=== PATIENT | male | born 1960 | race Caucasian/White ===

== ENCOUNTER 2016-06-21 08:15 | Day surgery (SDC) | payer MEDICARE ==
[2016-06-19 15:16] LABS: HEMOGLOBIN 15.5 g/dL (13.6-17.8)
[2016-06-19 16:34] LABS: BUN (BLOOD UREA NITROGEN) 16 MG/DL (6-23); CALCIUM, SERUM 8.8 MG/DL (8.5-10.4); CHLORIDE, SERUM 105 MMOL/L (96-112); CO2 (CARBON DIOXIDE) 28 MMOL/L (24-34); CREATININE 1.17 MG/DL (0.70-1.30); GFR AFRICAN AMERICAN 81 ML/MIN (>=60); GFR NON AFRICAN AMERICAN 70 ML/MIN (>=60); GLUCOSE, SERUM 97 MG/DL (60-99); SODIUM, SERUM 141 MMOL/L (135-148)
--- NOTE | ~2016-06-21 | OP ---
Record Of Operation [facility] [address] [place]. [address] NAME: DONIS LEWIS : 62 [place] [facility] [place] [id number] AGE: 56 ADM/REG DATE : 06/21/16 MR#: [id number] REPORT SERV DATE: 06/21/16 DICTATED BY: EVELYN SCHAEFFER DATE: 06/21/16 REPORT STATUS : Draft TRANSCRIBED BY: MODL DATE: 06/21/16 DATE OF PROCEDURE: 06/21/2016 PREOPERATIVE DIAGNOSES: 1. Left upper back subcutaneous mass x2 with recent cellulitis. 2. Diabetes mellitus. 3. Nicotine dependence. 4. Coronary artery disease, status post coronary artery bypass and stents. 5. Hypertension. 6. Obstructive sleep apnea. POSTOPERATIVE DIAGNOSES: 1. Left upper back subcutaneous mass x2 with recent cellulitis. 2. Diabetes mellitus. 3. Nicotine dependence. 4. Coronary artery disease, status post coronary artery bypass and stents. 5. Hypertension. 6. Obstructive sleep apnea. PROCEDURE: Excision of deep subcutaneous left upper back mass x2 with layered closure (3.5 x 3.5 cm and 2.2 cm). ANESTHESIA: General. SELECTOR PACKER: Tomer. COMPLICATIONS: None. DRAINS: None. ESTIMATED BLOOD LOSS: 20 mL. FINDINGS: The patient was noted to have a left upper back deep subcutaneous mass superiorly that appeared to be an infected sebaceous cyst with a possible second phlebotomist medical lab assistant infected sebaceous cyst versus necrotic lymph node, both were taken out and closed in layers. OPERATIVE TECHNIQUE: The patient was brought to the operating room and placed on the table in supine position. He had preoperative IV antibiotics. He had sequential hose in place. He voided prior to the procedure. He underwent general endotracheal anesthesia and was prepped and draped in a sterile fashion, and time-out was completed. Local anesthesia was instilled around the masses. The left upper back cyst was excised in elliptical fashion with a 15 blade knife and the incision was carried through the subcutaneous tissues down the level of the fascia and it was completely excised and sent to Pathology. The wound was then thoroughly irrigated, and hemostasis was obtained using electrocautery. The lower lesion toward the left posterior axilla was anesthetized with local anesthesia and a transverse oblique incision was made over the mass that was carried down to the level of the mass, Record Of Operation [facility] [address] [place]. [address] NAME: DONIS LEWIS : 62 [place]US : [place] [facility] [place] [id number] AGE: 56 ADM/REG DATE : 06/21/16 MR#: [id number] REPORT SERV DATE: 06/21/16 DICTATED BY: VEELYN SCHAEFFER DATE: 06/21/16 REPORT STATUS : Draft TRANSCRIBED BY: MODL DATE: 06/21/16 which was necrotic. It was completely excised down the level and including muscle fascia and sent to Pathology. The wound was irrigated and hemostasis was obtained. Both incisions were closed in layered fashion with a 3-0 Vicryl deep subcutaneous tissue reapproximation followed by interrupted Ethibond sutures at the skin. Dry dressings were applied. He was extubated and taken to the recovery room in stable condition. All sponge and needle counts were reported correct. /GIBRAN Evelyn Schaeffer M.D. / [id number] CC: Umair Giles
[~2016-06-21 08:15] MED LIST: ASA5GR PO; ASAB PO; CHLORTHALID25 MG OR; CHLORTHALID25 MG PO; COREG12 PO; COREG25 PO; DURICEFSUS PO; ENDOCET1 TA1 PO; FISH OIL1200 MG PO; FLEX PO; GLUCOPHAGE1000 MG PO; GLUCPH PO; GOODY'S EX PO; GOODYS PM1 POW OR; HYGROTON 25 MG25 MG PO; LISINOPRIL40 MG PO; LORT7 PO; LORTAB 5 PO; LYRICA50 PO; MSCONTIN PO; NITROQUICK0.3 MG SL; NORV5 PO; PERCOCET1 TA4 PO; V5 PO; VYTORIN 10/20 T1 TAB PO; VYTORIN 10/40 T1 TAB PO; ZESTRIL40 MG PO
[2016-08-30] MEDS ORDERED: NITROSTAT0.4 MG SL (11:58)
[2016-08-31] MEDS ORDERED: BC HEADACHE PO (07:53)
[2016-08-31] MEDS ORDERED: TESTOST CYP100 MG/ML IM (07:54)
[2016-09-01] MEDS ORDERED: EFFIENT10 PO (07:32)
[2016-09-01] MEDS ORDERED: LIPITOR40 PO (08:00)
== END 2016-06-21 15:11 | disposition home or self-care (01) ==
LOC: SDC 08:15
PROVIDERS: Surgery
PROC: 0WBK0ZZ Excision of Upper Back, Open Approach (ICD-10-PCS; principal; 2016-06-21 10:15)
DX: L72.0 Epidermal cyst (principal); L03.312 Cellulitis of back [any part except buttock and flank]; I10 Essential (primary) hypertension; M19.90 Unspecified osteoarthritis, unspecified site; E11.9 Type 2 diabetes mellitus without complications; E78.5 Hyperlipidemia, unspecified; F17.210 Nicotine dependence, cigarettes, uncomplicated; E78.00 Pure hypercholesterolemia, unspecified; Z95.1 Presence of aortocoronary bypass graft; Z98.1 Arthrodesis status; Z98.890 Other specified postprocedural states
CPT/HCPCS: 80048; 82962; 85014; 85018; 88304; 88305; 93005; A9270-GY; J0690; J1170; J2250; J2270; J2370; J2405; J3010